=== PATIENT | male | born 1955 | race Caucasian/White ===

== ENCOUNTER 2022-01-19 09:10 | Emergency (ER) | payer OTHER, SELFPAY ==
[2022-01-19 09:29] VITALS: BP 150/89; PULSE 80; RESP 26; TEMP 36.6; O2SAT 95; BMI 36.2
--- NOTE | 2022-01-19 10:01 | CRLHL7_ITS ---
For Patients: As a result of the Century Cures Act, medical imaging exams and procedure reports are released immediately into your electronic medical record. You may view this report before your referring provider. If you have questions, please contact your health care provider. INDICATION: Cough and dyspnea COMPARISON: 04/28/2021 TECHNIQUE: Two views of the chest were acquired FINDINGS: TUBES AND LINES: None. HEART AND MEDIASTINUM: Heart size top normal. Sternotomy. Left atrial appendage occlusion device noted. LUNGS AND PLEURAL SPACES: Lung findings likely related to edema/CHF though a diffuse inflammatory process is possible. No pleural effusion or pneumothorax OSSEOUS STRUCTURES: Age-appropriate appearance. No acute focal finding. IMPRESSION: 1. Lung findings likely related to edema/CHF. A diffuse inflammatory process is also possible. Normal pleural spaces. 2. Heart size top normal. Sternotomy. Left atrial appendage occlusion device. Dictated by Shahid Duke MD @ 01/19/2022 10:50:34 AM (Electronically Signed)
--- NOTE | 2022-01-19 10:01 | ED.GENADULT ---
HPI - General Adult General Chief complaint: Shortness of Breath/Dyspnea Stated complaint: Short of breath Time Seen by Provider: 01/19/22 09:14 History of Present Illness HPI narrative: This 66-year-old male comes in reporting cough and some shortness of breath. These symptoms started yesterday. He states that he slept in a recliner last night. He does not report any fever. He does have some nasal congestion. He arrives with normal vital signs but does have some increased respirations. His oximetry is at 95% on room air. He has a history of fluid around his heart and had his pericardium removed about 6 months ago. He does not report any chest pain. He does not have any pedal edema. Related Data Previous Rx's Medication Instructions Recorded acetaminophen 300 mg-codeine 30 mg 1 tab PO Q6H PRN pain #20 tabs 01/19/22 tablet Allergies Allergy/AdvReac Type Severity Reaction Status Date / Time Penicillins Allergy Verified 01/19/22 09:28 mtc oil Allergy Uncoded 01/19/22 09:28 Review of Systems Status of ROS: Reports: 10 or more systems reviewed and unremarkable except as noted in History and below Narrative: Constitutional: No fevers, no weight gain or loss. Eyes: No discharge. No vision changes. HENT: No congestion, no sore throat, no ear pain. Cardiovascular: No chest pain, no palpitations. Respiratory: Cough with some shortness of breath. Gastrointestinal: No abdominal pain, no vomiting, no diarrhea. Genitourinary: No dysuria, no hematuria. Musculoskeletal: Normal range of motion. Skin: No rashes, no pruritis. Neurological: No dizziness, weakness, sensory change, speech change. Endo/Heme/Allergies: No bruising or bleeding. No polydipsia. Pysch: no suicidality, no anxiety, no insomnia. All other systems reviewed and are negative. PFSH PFSH Social History Smoking Status: Never smoker Do you use any of these nicotine containing products: None Second hand tobacco smoke exposure: No How often do you have a drink containing alcohol: 2-3 times a week How many standard drinks containing alcohol do you have on a typical day: 3 or 4 How often do you have six or more drinks on one occasion: Monthly AUDIT-C Alcohol total score: 6 Non-prescribed substance use: denies use service: No Exam Narrative: Exam Narrative: Constitutional: Well-developed, well-nourished, no acute distress. HEENT: Normocephalic, atraumatic. Neck: Normal range of motion. Nontender. Supple. Heart: Regular. No murmurs. Normal rate. Intact distal pulses. Lungs: Clear to auscultation. No chest discomfort. No rhonchi, or rales. A slight wheezes heard in the left anterior lung. Abdomen: Normal bowel sounds. Nontender. No rebound tenderness. Genitalia: Deferred. Back: No midline tenderness. Normal range of motion. Extremities: Normal range of motion. No injury. Skin: Intact. No rash. Warm. No erythema or pallor. Neurologic: No altered sensation. No weakness. Alert and oriented. Psychiatric: No suicidality. No anxiety or depression. No insomnia. Nursing notes and vitals signs are reviewed. Const: Vital Signs, click to edit/add: Vital Signs - 24 hr 01/19/22 09:29 01/19/22 10:30 01/19/22 11:00 Temperature 97.8 F Pulse Rate [Apical ] 80 87 84 Respiratory Rate 26 H 16 16 Blood Pressure [Ri ght Upper Arm] 150/89 H 151/94 H 162/92 H Pulse Oximetry 95 93 95 Oxygen Delivery Me thod Room Air 01/19/22 11:30 Temperature Pulse Rate [Apical ] 89 Respiratory Rate 16 Blood Pressure [Ri ght Upper Arm] 161/90 H Pulse Oximetry 94 Oxygen Delivery Me thod Course Vital Signs Vital signs: Initial Vital Signs Temperature 97.8 F 01/19/22 09:29 Temperature Source Temporal Artery Scan 01/19/22 09:29 Pulse Rate 80 01/19/22 09:29 Pulse Rhythm 01/19/22 09:29 Respiratory Rate 26 H 01/19/22 09:29 Blood Pressure 150/89 H 01/19/22 09:29 Blood Pressure Mean 109 01/19/22 09:29 Blood Pressure Position Supine 01/19/22 09:29 Pulse Oximetry 95 01/19/22 09:29 Oxygen Delivery Method 01/19/22 09:29 Vital Signs Temperature 97.8 F 01/19/22 09:29 Pulse Rate 80 01/19/22 09:29 Respiratory Rate 26 H 01/19/22 09:29 Blood Pressure 150/89 H 01/19/22 09:29 Pulse Oximetry 95 01/19/22 09:29 Oxygen Delivery Method 01/19/22 09:29 Temperature 97.8 F 01/19/22 09:29 Pulse Rate 89 01/19/22 11:30 Respiratory Rate 16 01/19/22 11:30 Blood Pressure 161/90 H 01/19/22 11:30 Pulse Oximetry 94 01/19/22 11:30 Oxygen Delivery Method 01/19/22 09:29 Medical Decision Making Lab Data Labs: Lab Results 01/19/22 01/19/22 01/19/22 Range/Units 09:55 10:13 10:13 WBC 7.39 (4.50-11.00) K/uL RBC 4.46 (4.30-5.90) m/uL Hgb 13.3 L (13.5-17.5) gm/dL Hct 39.2 (37.0-53.0) % MCV 88 (80-100) fL MCH 30 (26-34) pg MCHC 34 (32-36) gm/dL RDW Coeff of [place] 14.9 (11.5-15.5) % Plt Count 126 L (140-440) K/uL Neut % (Auto) 76.2 H (42.0-72.0) % Lymph % (Auto) 10.7 L (20-44) % [place] % (Auto) 11.1 H (0.0-11.0) % Eos % (Auto) 1.8 (0.0-7.0) % Baso % (Auto) 0.1 (0.0-3.0) % Neut # (Auto) 5.60 (1.7-7.0) K/uL Lymph # (Auto) 0.80 L (0.90-2.90) K/uL [place] # (Auto) 0.80 (0.00-0.90) K/UL Eos # (Auto) 0.13 (0.00-0.50) K/uL Baso # (Auto) 0.01 (0.00-0.30) K/uL Abs Immat Gran (auto) 0.01 (0.00-0.30) K/uL Sodium 134 L (135-149) mmol/L Potassium 4.4 (3.6-5.1) mmol/L Chloride 100 (96-114) mmol/L Carbon Dioxide 24 (20-32) mmol/L BUN 13 (7-30) mg/dL Creatinine 0.7 (0.5-1.5) mg/dL Estimated Creat Clear 89.19 Estimated GFR 103 ml/min Glucose 172 H (60-115) mg/dL Calcium 9.1 (8.4-10.6) mg/dL NT-Pro-B Natriuret Pep 149 H (0-125) PG/mL SARS-CoV-2 (PCR) Negative SARS-CoV-2 (Negative) Influenza Type A (PCR) Negative PCR FLU A (Negative) Influenza Type B (PCR) Negative PCR FLU B (Negative) RSV (PCR) Cancelled POC Troponin I (0.01-0.04) ng/ml 01/19/22 Range/Units 10:13 WBC (4.50-11.00) K/uL RBC (4.30-5.90) m/uL Hgb (13.5-17.5) gm/dL Hct (37.0-53.0) % MCV (80-100) fL MCH (26-34) pg MCHC (32-36) gm/dL RDW Coeff of [place] (11.5-15.5) % Plt Count (140-440) K/uL Neut % (Auto) (42.0-72.0) % Lymph % (Auto) (20-44) % [place] % (Auto) (0.0-11.0) % Eos % (Auto) (0.0-7.0) % Baso % (Auto) (0.0-3.0) % Neut # (Auto) (1.7-7.0) K/uL Lymph # (Auto) (0.90-2.90) K/uL [place] # (Auto) (0.00-0.90) K/UL Eos # (Auto) (0.00-0.50) K/uL Baso # (Auto) (0.00-0.30) K/uL Abs Immat Gran (auto) (0.00-0.30) K/uL Sodium (135-149) mmol/L Potassium (3.6-5.1) mmol/L Chloride (96-114) mmol/L Carbon Dioxide (20-32) mmol/L BUN (7-30) mg/dL Creatinine (0.5-1.5) mg/dL Estimated Creat Clear Estimated GFR ml/min Glucose (60-115) mg/dL Calcium (8.4-10.6) mg/dL NT-Pro-B Natriuret Pep (0-125) PG/mL SARS-CoV-2 (PCR) (Negative) Influenza Type A (PCR) (Negative) Influenza Type B (PCR) (Negative) RSV (PCR) POC Troponin I 0.00 L (0.01-0.04) ng/ml Imaging Data Chest x-ray: Radiologist's impression: 1. Lung findings likely related to edema/CHF. A diffuse inflammatory process is also possible. Normal pleural spaces. 2. Heart size top normal. Sternotomy. Left atrial appendage occlusion device. ECG Data Attestation: I personally reviewed and interpreted this ECG as follows: Interpretation: Normal sinus rhythm. Rate is 82 beats per minute. Left anterior fascicular block. There are no ST or T-wave abnormalities. Discharge Plan Discharge Clinical Impression: Acute upper respiratory infection Patient Disposition: Home, Self-Care Condition: Improved Additional Instructions: Take medication as needed and indicated. Follow up with MD or return if worsening. For further evaluation of the ventral hernia call for appointment at surgery clinic. Prescriptions: New acetaminophen-codeine 300-30 mg tablet 1 tab PO Q6H PRN (Reason: pain) Qty: 20 0RF Follow Up/Referrals: Loc Barrios MD [Primary Care Provider] - Stand Alone Forms: [employer] Info Instructions
[2022-01-19 10:23] LABS: Basophils Absolute Auto 0.01 K/uL (0.00-0.30); Basophils Percent Auto 0.1 % (0.0-3.0); Eosinophils Absolute Auto 0.13 K/uL (0.00-0.50); Eosinophils Percent Auto 1.8 % (0.0-7.0); Hematocrit 39.2 % (37.0-53.0); Hemoglobin* 13.3 gm/dL (13.5-17.5); Immature Granulocytes Abs Auto 0.01 K/uL (0.00-0.30); Lymphocytes Percent Auto 10.7 % (20-44); Mean Corpuscular HGB Conc 34 gm/dL (32-36); Mean Corpuscular Hemoglobin 30 pg (26-34); Mean Corpuscular Volume 88 fL (80-100); Monocytes Percent Auto 11.1 % (0.0-11.0); Neutrophils Percent Auto 76.2 % (42.0-72.0); Platelet Count* 126 K/uL (140-440); RDW Coefficient of Variation % 14.9 % (11.5-15.5); Red Blood Count 4.46 m/uL (4.30-5.90); Slide Review Reflex No; White Blood Count* 7.39 K/uL (4.50-11.00)
[2022-01-19 10:30] VITALS: BP 151/94; PULSE 87; RESP 16; O2SAT 93
[2022-01-19 10:31] LABS: Chloride* 100 mmol/L (96-114); Potassium* 4.4 mmol/L (3.6-5.1); Sodium* 134 mmol/L (135-149)
[2022-01-19 10:33] LABS: Creatinine* 0.7 mg/dL (0.5-1.5); Est. Creatinine Clearance* 89.19; Estimated Glomerular Filt Rate 103 ml/min
[2022-01-19 10:34] LABS: Blood Urea Nitrogen* 13 mg/dL (7-30); Calcium* 9.1 mg/dL (8.4-10.6); Carbon Dioxide* 24 mmol/L (20-32); Glucose* 172 mg/dL (60-115)
[2022-01-19 10:43] LABS: NT Pro B Type NatriureticPept* 149 PG/mL (0-125)
[2022-01-19 10:54] LABS: PCR FLU A Negative PCR FLU A (Negative); PCR FLU B Negative PCR FLU B (Negative)
[2022-01-19 11:00] VITALS: BP 162/92; PULSE 84; RESP 16; O2SAT 95
[2022-01-19 11:05] LABS: SARS PCR* Negative SARS-CoV-2 (Negative)
[2022-01-19 11:30] VITALS: BP 161/90; PULSE 89; RESP 16; O2SAT 94
== END 2022-01-19 11:52 | disposition home or self-care (01) ==
LOC: ED 10:05
PROVIDERS: Emergency Provider Emergency Medicine Emergency Medical Services; PCP Surgery
DX: J06.9 Acute upper respiratory infection, unspecified (principal)
CPT/HCPCS: 36415; 71046; 80048; 83880; 85025; 87502; 87631; 87634; 87635; 93005; 99284; 99285

== ENCOUNTER 2022-01-21 21:45 | Emergency (ER) | payer OTHER, SELFPAY ==
[2022-01-21 21:58] VITALS: BP 155/87; PULSE 101; RESP 24; TEMP 36.8; O2SAT 94; BMI 37.2
--- NOTE | 2022-01-21 22:13 | CRLHL7_ITS ---
For Patients: As a result of the Cures Act, medical imaging exams and procedure reports are released immediately into your electronic medical record. You may view this report before your referring provider. If you have questions, please contact your health care provider. INDICATION: [id number]. TECHNIQUE: Chest 2 views. COMPARISON: January 19, 2022. FINDINGS: Cardiovascular and mediastinum: Heart size and vasculature are normal in caliber and appearance. Left atrial appendage occlusion device. Sternotomy wires. Lungs and pleural spaces: Mild pulmonary edema. No focal consolidations. No sign of pleural effusion. No pneumothorax. Bones and soft tissues: No significant findings. IMPRESSION: No significant changes from the prior exam. Dictated by Miguelangel Vazquez MD @ 01/21/2022 10:48:17 PM (Electronically Signed)
--- NOTE | 2022-01-21 22:41 | ED.GENADULT ---
HPI - General Adult General Chief complaint: Shortness of Breath/Dyspnea Stated complaint: difficulty breathing Time Seen by Provider: 01/21/22 21:58 History of Present Illness HPI narrative: Pt is a 66 year old gentleman who was seen earlier this week for cough and sob. Work up including covid test, blood work, chest x ray unremarkable. Pt treated symptomatically. Pt not hypoxic or short of breath but does have a nonproductive cough and malaise. Pt case complicated by pericardectomy in July of this year for restrictive findings found during ablation of atrial fibrillation. Pt has no chest pain, nausea vomiting, fever or chills. No sick contacts. Related Data Previous Rx's Medication Instructions Recorded acetaminophen 300 mg-codeine 30 mg 1 tab PO Q6H PRN pain #20 tabs 01/19/22 tablet Allergies Allergy/AdvReac Type Severity Reaction Status Date / Time Penicillins Allergy Verified 01/19/22 09:28 mtc oil Allergy Uncoded 01/19/22 09:28 Review of Systems Status of ROS: Reports: 10 or more systems reviewed and unremarkable except as noted in History and below PFSH PFS Social History Smoking Status: Never smoker Do you use any of these nicotine containing products: None Second hand tobacco smoke exposure: No How often do you have a drink containing alcohol: 2-3 times a week How many standard drinks containing alcohol do you have on a typical day: 3 or 4 How often do you have six or more drinks on one occasion: Monthly AUDIT-C Alcohol total score: 6 Non-prescribed substance use: denies use service: No Exam Narrative: Exam Narrative: EXAM GENERAL: Patient appears comfortable and well. EYES: No scleral icterus. ENT: Tympanic membranes and oropharynx normal. THYROID: no thyroid nodules or thyromegaly. LYMPH: No supraclavicular or cervical lymphadenopathy. SKIN: Visible skin seen during exam normal or with benign process only. EXT: No dependent lower extremity pedal edema. HEART: Regular rate and rhythm with no murmurs, rubs, or gallops. LUNGS: Bilateral expiratory wheezes noted. ABD: Soft, non tender, non distended. PSYCH: Good eye contact, speech is not pressured. Const: Vital Signs, click to edit/add: Vital Signs - 24 hr 01/21/22 21:58 Temperature 98.2 F Pulse Rate [Left P ulse Oximeter] 101 H Respiratory Rate 24 Blood Pressure [Ri ght Upper Arm] 155/87 H Pulse Oximetry 94 Oxygen Delivery Me thod Room Air Course Course Hospital Course: Pt seen and examined. Vitals reviewed. Chest x ray 2 view ordered. Reevaluation(s) Reevaluation #1: Chest x ray upon my review unchanged from previous. Time: 22:45 Vital Signs Vital signs: Initial Vital Signs Temperature 98.2 F 01/21/22 21:58 Temperature Source Temporal Artery Scan 01/21/22 21:58 Pulse Rate 101 H 01/21/22 21:58 Pulse Rhythm 01/21/22 21:58 Respiratory Rate 24 01/21/22 21:58 Blood Pressure 155/87 H 01/21/22 21:58 Blood Pressure Mean 109 01/21/22 21:58 Blood Pressure Position Semi-Fowlers 01/21/22 21:58 Pulse Oximetry 94 01/21/22 21:58 Oxygen Delivery Method 01/21/22 21:58 Vital Signs Temperature 98.2 F 01/21/22 21:58 Pulse Rate 101 H 01/21/22 21:58 Respiratory Rate 24 01/21/22 21:58 Blood Pressure 155/87 H 01/21/22 21:58 Pulse Oximetry 94 01/21/22 21:58 Oxygen Delivery Method 01/21/22 21:58 Temperature 98.2 F 01/21/22 21:58 Pulse Rate 101 H 01/21/22 21:58 Respiratory Rate 24 01/21/22 21:58 Blood Pressure 155/87 H 01/21/22 21:58 Pulse Oximetry 94 01/21/22 21:58 Oxygen Delivery Method 01/21/22 21:58 Medical Decision Making [facility] Narrative Medical decision making narrative: Pt presents 2 days after full workup for nonproductive cough performed. Vitals normal. Expiratory wheezes noted on exam. Chest x ray reassuring. Pt with history of pericardectomy noted. Pt appears to have bronchitis and will be treated with Z pack plus albuterol with PCP follow up. Differential Diagnosis Differential Diagnosis: CHF, COVID, Bronchitis, Pneumonia, Pneumothorax, Viral Syndrome Medical Records Medical records reviewed: Yes I reviewed the patient's medical records Discharge Plan Discharge Clinical Impression: Bronchitis Patient Disposition: Home, Self-Care Condition: Stable Instructions: Acute Bronchitis (ED) Additional Instructions: Z pack as directed Albuterol as directed Activity Level: No Restrictions Discharge Diet: Regular Prescriptions: No Action acetaminophen-codeine 300-30 mg tablet 1 tab PO Q6H PRN (Reason: pain) Qty: 20 0RF Follow Up/Referrals: Loc Barrios MD [Primary Care Provider] - Stand Alone Forms: [employer] Info Instructions
--- OUTSIDE RECORDS SUMMARY | 2022-01-21 22:45 | XMS_ITS | Encounter Summary ---
:1955 Author Organization [facility] Address [address] [place] [address] Care Team Providers Name Role Phone Unavailable Primary Care Provider Unavailable Reason for Referral Therapies (Routine) - Closed Specialty Diagnoses / Procedures Referred By Contact Refer red To Contact Diagnoses Cervical radiculopathy Beau Ogden MD [address] [place] [address] AYAN Samuel 5543 1 Referral ID Status Reason Start Date Expiration Date Visits Requ ested Visits Authorized [id number] Closed 11/27/2018 01/26/2019 1 1 Scheduling Instructions Your provider has recommended an appoint ment with [facility]. You may call [phone] to schedule your appoi ntment. If you do not schedule an appointment within the next 1 to 3 business days, we will call you to help arrange your appointment. We suggest you call your [employer] insurance company about your coverage and benefits for this appointment. Reason for Visit Reason Comments SHOULDER PAIN left about 2 weeks Encounter Details Date Type Department Care Team Description 11/27/2018 Office Visit [facility] Orthopedic Beau Ogden Cervica l radiculopathy Urgent Care MD (Primary Dx) [address] [place] [address] [place] [phone] (Wo rk) Social History Tobacco Use Types Packs/Day Years Used Date Smoking Tobacco: Never Sex Assigned at Date Recorded Not on file documented as of this encounter Last Filed Vital Signs Vital Sign Reading Time Taken Comments Blood Pressure 140/90 11/27/2018 5:45 PM CDT Pulse - - Temperature 36.7 ??C (98.1 ??F) 11/27/2018 5:45 PM CDT Respiratory Rate - - Oxygen Saturation - - Inhaled Oxygen Concentration - - Weight 133.8 kg (295 lb) 11/27/2018 5:45 PM CDT Height 188 cm (6' 2) 11/27/2018 5:45 PM CDT Body Mass Index 37.88 11/27/2018 5:45 PM CDT documented in this encounter Patient Instructions Patient InstructionsNenita Rojas ATC - 11/27/2018 4:[address] Beau Ogden MD Sports & Orthopaedic Medicine [facility] Medication Requests: Prescriptions are not filled on Weekends or on Weekdays after 3:00PM For all medication refills: Request a refill using MyChart or contact your Pharmacy [facility] Nurse Line: Please contact [facility] Nurse line for all medical requests and questions at [phone] MRI Scheduling: To schedule an MRI at [facility] please call [phone] Paperwork Requests: Questions regarding FMLA or disability paperwork please call [phone] Workers??? Compensation: Please contact our department for any Work Comp concerns at Email: [email or web address] Left cervical radiculopathy Avoid activities that cause pain Physical therapy referral Follow up as needed The following medications were prescribed at your visit : Orders Placed This Encounter Medications ??? cyclobenzaprine (FLEXERIL) 10 MG tablet Sig: Take 1 Tablet by mouth three times a day as needed. Dispense: 20 Tablet Refill: 0 ??? gabapentin (NEURONTIN) 300 MG capsule Sig: Take 1 Capsule by mouth three times a day. Dispense: 270 Capsule Refill: 3 Medication Refill Requests: Prescription Refill Requests are not filled on Weekends or on Weekdays after 3:00PM For all medication refills: Request a refill using MyChart or contact your Pharmacy documented in this encounter Progress Notes Beau Ogden MD - 11/27/2018 12:00 PM CDT NAME: BRANDON SANTOS MR#: [id number] CSN: [id number] AUTHENTICATING CLINICIAN: Beau Ogden MD CONFIRM #: [id number] LOC: 711 CLINIC PROGRESS NOTE DATE OF VISIT: 11/27/2018 : 1955 Brandon Santos here for left shoulder pain that began 2 weeks ago without injury. He has pain over thelateral and deep aspect of the shoulder as well as into the scapula as well as down to the triceps and elbow. He had a stiff neck initially. Pain is worse in the evening and lying down, but does not describe definite symptoms during the day when he is active with his arms. Pain is 9/10. He has no history of similar pain at the neck or the shoulder in the past. REVIEW OF SYSTEMS: No fever, rash, numbness, and tingling. No stomach or joint problems. Positive for diabetes. PAST MEDICAL HISTORY: None. PAST SURGICAL HISTORY: Hernia and sleep apnea. FAMILY HISTORY: Diabetes. 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 ALLERGIES: Per Epic. MEDICATIONS: Per Epic. OBJECTIVE: VITAL SIGNS: Height 62 inches, weight 295 pounds. Temperature 98.1, blood pressure 140/90. GENERAL: Well-appearing male in no acute distress. CERVICAL: Has decreased flexion and extension with pain. Rotation appears full. Upper extremity strength is 5/5 bilaterally. No scapular winging. Left shoulder a bduction, internal, and external rotation is full. Nontender to palpation. Strength in all planes is5/5. Negative Sawyer, Neer's, and Princeton's. ASSESSMENT: Left cervical radiculopathy without focal neurologic deficit. PLAN: We discussed prednisone, and we will hold given his diabetes. We will start with gabapentin, cyclobenzaprine, and acute physical therapy. If not improving over time, we will plan for a cervical MRI. Follow up as needed. SAB:MEDQ C: R:11/27/18 23:06 CONFIRM#:[id number] documented in this encounter Plan of Treatment Scheduled Referrals Name Type Priority Associated Diagnoses Order [facility] Physical Therapy Referral Routine Cervical radiculopathy O rdered: 11/27/2018 documented as of this encounter Visit Diagnoses Diagnosis Cervical radiculopathy - Primary Brachial neuritis or radiculitis nos documented in this encounter
--- OUTSIDE RECORDS SUMMARY | 2022-01-21 22:45 | XMS_ITS | Clinical Summary ---
:1955 Author Organization [facility] Address [address] [place] [address] Care Team Providers Name Role Phone Loc Barrios MD Primary Care Provider Source Comments You are receiving this document as you are listed as the primary care provider,follow-up provider, or the patient has been referred to you for consultation.This is in compliance with the Medicare and Medicaid EHR Incentive Program,which states Providers who transition their patient to another setting of careor provider of care or refers their patient to another provider of care shouldprovide summarycare record for each transition of care or referral. [employer] Allergies Active Allergy Reactions Severity Noted Date Comments Penicillins Other, see comments 01/20/2012 Medications Medication Sig Dispensed Refills Start Date End Date Status Canagliflozin 300 MG TK 1 T PO QD 7 11/10/2015 Active TABSIndications: JANICE GILLESPIE Nov 30, 2015 10:20 AM Received from: External Pharmacy metFORMIN (GLUCOPHAGE) TK 1 T PO BID 1 10/08/2015 Active 1000 MG WITH MEALS tabletIndications: JANICE GILLESPIE Nov 30, 2015 10:20 AM Received from: External Pharmacy rosuvastatin (CRESTOR) TK 1 T PO HS 3 10/12/2018 Active 10 MG tablet cyclobenzaprine Take 1 Tablet 20 Tablet 0 11/27/2018 Active (FLEXERIL) 10 MG tablet by mouth three times a day as needed. gabapentin (NEURONTIN) Take 1 Capsule 270 Capsule 3 11/27/2018 Active 300 MG capsule by mouth three times a day. Active Problems Problem Noted Date Primary osteoarthritis of left knee 11/30/2015 Olecranon bursitis 01/20/2012 Elbow pain 01/20/2012 Social History Tobacco Use Types Packs/Day Years Used Date Smoking Tobacco: Never Sex Assigned at Date Recorded Not on file Last Filed Vital Signs Vital Sign Reading Time Taken Comments Blood Pressure 140/90 11/27/2018 5:45 PM CDT Pulse 68 01/20/2012 10:53 AM CDT Temperature 36.7 ??C (98.1 ??F) 11/27/2018 5:45 PM CDT Respiratory Rate - - Oxygen Saturation - - Inhaled Oxygen Concentration - - Weight 133.8 kg (295 lb) 11/27/2018 5:45 PM CDT Height 188 cm (6' 2) 11/27/2018 5:45 PM CDT Body Mass Index 37.88 11/27/2018 5:45 PM CDT Plan of Treatment Health Maintenance Due Date Last Done Comments Colon Cancer Screening Plan 1955 Due Hep C Screening (Preventive 1955 Services) PSA Screening Discussion 1955 COVID-19 Vaccine (#1) 1955 HIV Screening (Preventive 1973 Services) Adult Preventive Visit 07/01/1975 Cholesterol 1992 Zoster/Shingles (2 of 2) 03/30/2020 02/03/2020 Influenza (#1) 2021 02/03/2020, 03/14/2019, 03/22/2018, Additional history exists DTaP/Tdap/Td (3 - Tdap) 02/02/2030 02/03/2020, 10/01/2009, 04/03/1999 HepA Aged Out No longer eligib le based on patient 's age to complete this topic HepB Aged Out No longer eligib le based on patient 's age to complete this topic Hib Aged Out No longer eligib le based on patient 's age to complete this topic IPV (Polio) Aged Out No longer eligib le based on patient 's age to complete this topic MCV4 Aged Out No longer eligib le based on patient 's age to complete this topic Pneumococcal Aged Out No longer eligib le based on patient 's age to complete this topic Insurance Payer Benefit Plan / Subscriber ID Effective Phone Address T ype Group Dates [facility] [id number] 2018-Pre [phone] [place] [address] [facility] [employer] [id number] 2009-Pr [phone] [employer]ALTHCARE esent [address] [address] [place] [address] Care Teams Emergency Registrar Relationship Specialty Start Date End Date Loc Barrios MD PCP - General Family Practice 12/06/18 [address] [place] [address]
--- OUTSIDE RECORDS SUMMARY | 2022-01-21 22:45 | XMS_ITS | Encounter Summary ---
:1955 Author Organization [facility] Address [address], [place] [address] Care Team Providers Name Role Phone Unavailable Primary Care Provider Unavailable Reason for Visit Reason Comments INJURY, ELBOW Encounter Details Date Type Department Care Team Description 01/20/2012 Office Visit [facility] Miguelangel Baker pain (Primary Dx); Jennie Torre MD Olecranon bursitis [address] [place], [place] [phone] Social History Tobacco Use Types Packs/Day Years Used Date Smoking Tobacco: Never Assessed Sex Assigned at Date Recorded Not on file documented as of this encounter Last Filed Vital Signs Vital Sign Reading Time Taken Comments Blood Pressure 133/83 01/20/2012 10:53 AM CDT Pulse 68 01/20/2012 10:53 AM CDT Temperature 36.4 ??C (97.5 ??F) 01/20/2012 10:53 AM CDT Respiratory Rate - - Oxygen Saturation - - Inhaled Oxygen Concentration - - Weight 131.5 kg (290 lb) 01/20/2012 10:53 AM CDT Height 190.5 cm (6' 3) 01/20/2012 10:53 AM CDT Body Mass Index 36.25 01/20/2012 10:53 AM CDT documented in this encounter Patient Instructions Patient InstructionsIsabel Meza MA - 01/20/2012 11:[address] Miguelangel Baker MD Sports & Orthopaedic Medicine Research Nurse: Claudia Royal Please call Claudia for all administrative questions at [phone] Please contact Nurse Triage for all medical questions at [phone] Please contact your Pharmacy for all medication refill requests documented in this encounter Progress Notes Miguelangel Baker MD - 01/21/2012 7:38 AM CDT Progress Notes signed by iMguelangel Baker MD at 01/24/12 110 Author: Miguelangel Baker MD Service: (none) Author Type: Physician Filed: 01/24/12 110 Note Time: 01/21/12737 Status: Signed Mental Retardation Aide: Miguelangel Baker MD (Physician) NAME: BRANDON SANTOS VISIT: [id number] DICTATING CLINICIAN: MIGUELANGEL BAKER MD JOB: [id number] [facility] JOB: [id number] LOC: 3711 CLINIC PROGRESS NOTE DATE OF VISIT: 01/20/2012 : 1955 Mr. Santos comes in today with a history of a tenderness in his left elbow. He notes if he rests his elbow on any firm surface he gets sharp shooting pains in the epicondylar area and region of the olecranon bursa. It seems to come and go. If he puts on a long-sleeved shirt and it puts pressure on that area, it becomes much more problematic for him. He is going up into [place] [employer] for a week, and he is going to be doing a lot of activities involving elbow motion and pressure and the like and is concerned about persistent aggravation of that structure while in that fairly isolated environment. PHYSICAL EXAMINATION: He does have some crepitus in his olecranon bursa and is sensitive in that area with palpation. Motion of the elbow is normal. Pronation and supination asymptomatic. X-RAYS: X-rays were ordered and independently reviewed by me. X-ray was taken of the elbow and it shows a small protuberance at the tip of the elbow, otherwise the x-rays reveal no other abnormalities whatsoever. HEALTH PROFILE: Mr. Santos rates his elbow pain anywhere from a 0-7/10 (0 being normal and 10 the most intense pain one can imagine). He stands 6 feet 3 inches and weighs 290 pounds. Blood pressure 133/83, pulse 68. He states he is concerned about the elbow because he gets a tearing sensation in the elbow when he uses it under pressure. MEDICATIONS: Metformin and simvastatin for medical problems and elevated cholesterol. ADR/ALLERGIES: PENICILLIN. MEDICAL HISTORY: Mr. Santos does not have a history of any recent fever or rash. He does have some numbness and tingling in his elbow on occasion. He does have a history of diabetes for which he takes the metformin. He has no history of any stomach problems or joint problems except for his elbow issue. He does not smoke. 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 He does not have any other significant medical conditions except those mentioned. He has no history of any previous surgeries. He has no history of any significant family history that he comments on today. 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 He is right-handed. His hobbies are golf, gardening, fishing and hunting. PROCEDURE: Because of the persistent concerns about the irritation in the elbow and the evidence of crepitus on examination of the olecranon bursa, I felt that he had a potential for a problem with irritation in that region, and as a result, under sterile conditions, using a 25-gauge needle, we injected 1 mL of Depo-Medrol and 1 mL of 1% Lidocaine into the bursal area, which he tolerated very well. This was done under sterile conditions with #8 sterile gloves, prepping the area with Betadine and then cleaning the wound off with an alcohol prep after the injection and placing a band-aid on the puncture site. He tolerated this very well. We will discharge him and see him if he has any further problems. IM: 01/22/2012 08:05:25 am MT: 10 documented in this encounter Plan of Treatment Not on filedocumented as of this encounter Procedures Procedure Name Priority Date/Time Associated Diagnosis Comme nts XR ELBOW LT 2 VIEWS Routine 01/20/2012 11:09 AM Elbow pain R esults for this CDT procedure are i n the results section. documented in this encounter Results XR Elbow Lt 2 Views (01/20/2012 11:09 AM CDT) Anatomical Region Laterality Modality Upper Extremity, Elbow, Arm Other Specimen (Source) Anatomical Location Collection Method / Collectio n Time Received Time / Laterality Volume Narrative 02/20/2012 9:05 AM QUALITY ASSISTANT X-ray was taken of the elbow and it show s a small protuberance at the tip of the elbow, otherwise the x-rays r eveal no other abnormalities whatsoever. ?? KAROLINAB/suek Procedure Note Miguelangel Baker MD - 09/19/2015F ormatting of this note might be different from the original. X-ray was taken of the elbow and it show s a small protuberance at the tip of the elbow, otherwise the x-rays r eveal no other abnormalities whatsoever. KAROLINAB/jlk Miguelangel Baker MD RAD GD documented in this encounter Visit Diagnoses Diagnosis Elbow pain - Primary Pain in joint, upper arm Olecranon bursitis documented in this encounter
--- OUTSIDE RECORDS SUMMARY | 2022-01-21 22:45 | XMS_ITS | Encounter Summary ---
:1955 Author Organization [facility] Address [address] [place] [address] Care Team Providers Name Role Phone Loc Barrios MD Primary Care Provider Reason for Visit Reason Comments Shoulder Problem Encounter Details Date Type Department Care Team Description 12/21/2018 Office Visit [facility] PT and Ed Shiv Remy, Cervical radiculopathy (Primary Dx); Center, Physical PT Neck pain on left side Therapy [address] [place] [address] [phone] Social History Tobacco Use Types Packs/Day Years Used Date Smoking Tobacco: Never Sex Assigned at Date Recorded Not on file documented as of this encounter Progress Notes Shiv Remy, PT - 12/21/2018 8:30 AM CDT [facility] [place] [facility] Daily Note Visit Number: [id number] Insurance: [facility] Initial Certification Period: 11/27/2018 - 02/25/19 Referring Provider: Beau Ogden MD Diagnosis: Left Cervical Radic Orders: Evaluate & treat Precautions/Contraindications: None Date of Onset: Mid November 2018 Standardized Functional Score: Neck Disability Index: 16/50 = 32% 11/27/2018 ?? HISTORY: Patient presents to [facility] Acute Injury Clinic Physical Therapy with complaint of left shoulder and left sided neck pain. Pt reports pain starting about 2 weeks ago. Unsure of what caused the symptoms to start. Has been doing home projects (1000 foot addition and new deck). Method of Injury: Insidious Aggravating factors/ Functional Limitations: Worse in AM, painful to lay on left shoulder, shoulder retraction causes arm symptoms Alleviating factors: Better later in the day Occupation: [employer] - some travel, mostly desk work Prior level of function: Active with home chores Patient's Physical Therapy Goals: decrease pain ?? IMAGING STUDIES: MRI ordered SUBJECTIVE: Does not notice his pain during the day. He has nearly full ROM without any pain noted. He notes some pulling in his nerve with certain movements of his arm. Gets some more tingling in forearm and handwhich is new - but not having pain associated with it. OBJECTIVE: (-) neural tension test 12/21/2018 Full cervical rotation bilaterally TREATMENT TODAY: Therapeutic Exercise (CPT 79187) x 10 minutes: - ER Bilat - Extension Bilat - Scaption Performed to improve blood flow to UE/nerve Manual therapy, 1 or more regions (CPT 22004) x 15 minutes: - gentle manual distraction - cervical side glides L to R, R to L Progressively worked to less degrees of cervical flexion Timed Treatment Minutes: 25 minutes Total Treatment Time: 25 minutes Charges: 1 MT, 1TE ASSESSMENT: Doing much better - full cervical rotation. Improved function of arm. Still getting some mild pain but increased tingling with supine laying when going to bed. Has been sleeping in a recliner to mitigate this. Feels that PT is improving. Has been taking Gabapentin, but thinks he is getting some side ef fects from this and stopped 12/20/18. PLAN: Continue 1x/week or close to based on his travel. Continue with return to activities and manual therapy. EXPECTED FUNCTIONAL OUTCOMES/GOALS: HEP/Independent Management: Demonstrate independence with HEP and self- management following each treatment session ADL's: Resume previous sleep pattern without awakening due to symptoms in 4 weeks. Perform home management tasks with ease in 4 weeks. 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 Therapist: Stewart Remy PT, DPT, SCS ([place] License #[id number]) 12/21/2018 documented in this encounter Plan of Treatment Not on filedocumented as of this encounter Visit Diagnoses Diagnosis Cervical radiculopathy - Primary Brachial neuritis or radiculitis nos Neck pain on left side Cervicalgia documented in this encounter Care Teams Acute Coordinator Relationship Specialty Start Date End Date Loc Barrios MD PCP - General Family Practice 12/06/18 [address] [place] [address] documented as of this encounter
--- OUTSIDE RECORDS SUMMARY | 2022-01-21 22:45 | XMS_ITS | Encounter Summary ---
:1955 Author Organization [facility] Address [address], [place] [address] Care Team Providers Name Role Phone Unavailable Primary Care Provider Unavailable Reason for Visit Reason Comments Elbow Pain Knee Pain or Injury Encounter Details Date Type Department Care Team Description 11/30/2015 Office Visit [facility] Davey Duque, Chronic pain of right knee (Primary Dx); Urgent Care MD Primary osteoarthritis of left knee [address] [place] [address] [phone] Social History Tobacco Use Types Packs/Day Years Used Date Smoking Tobacco: Never Assessed Sex Assigned at Date Recorded Not on file documented as of this encounter Last Filed Vital Signs Vital Sign Reading Time Taken Comments Blood Pressure - - Pulse - - Temperature 36.6 ??C (97.9 ??F) 11/30/2015 10:21 AM CDT Respiratory Rate - - Oxygen Saturation - - Inhaled Oxygen Concentration - - Weight 131.5 kg (290 lb) 11/30/2015 10:21 AM CDT Height 190.5 cm (6' 3) 11/30/2015 10:21 AM CDT Body Mass Index 36.25 11/30/2015 10:21 AM CDT documented in this encounter Patient Instructions Patient InstructionsDeidre Smith MA - 11/30/2015 11:[address] Davey Kulkarni MD General Orthopaedics Protein Purification Scientist: Vida Oates Please contact Vida for all administrative questions at [phone] Please contact the nurse line for all medical related questions at [phone] Medication Requests: Prescriptions are not filled on Weekends or on Weekdays after 3:00PM For all medication refills: Request a refill using [facility] or contact your Pharmacy MRI Scheduling: To schedule an MRI at [facility] please call [phone] right knee patella femoral pain follow up as needed The right knee was injected with Kenalog-40 and marcaine. Avoid Strenuous Activity for the remainder of the day and avoid activities that cause pain for one to two weeks following the injection. Signs and Symptoms to watch for: If you have any redness, warmth or increasing pain at the site of the injection or develop a fever, please call [phone] documented in this encounter Progress Notes Davey Kulkarni MD - 12/01/2015 7:31 AM CDT Progress Notes signed by Davey Kulkarni MD at 12/29/15 1430 Author: Davey Kulkarni MD Service: (none) Author Type: Physician Filed: 12/29/15 1430 Note Time: 12/04/15713 Status: Signed Regulatory Coordinator: Davey Kulkarni MD (Physician) NAME: BRANDON SANTOS MR#: [id number] CSN: [id number] AUTHENTICATING CLINICIAN: Davey Kulkarni MD CONFIRM #: [id number] LOC: 711 CLINIC PROGRESS NOTE DATE OF VISIT: 11/30/2015 : 1955 This 60-year-old man has 2 problems. The first is the right knee. 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 There was not anyswelling. Stairs were difficult. Squatting was difficult. He had difficulty getting up from a chair.He sleeps all right. The second problem is his left elbow. He had infected olecranon bursitis. He had a small cut a few days before it happened. He went to the emergency room. They placed him on antibiotics, clindamycin and it is getting better. No longer hurts, the redness has gone down. There is slight swelling over theolecranon bursa. PAST SURGICAL HISTORY: Hernia. ILLNESS: Depression, diabetes Type 2. ALLERGIES: PENICILLIN. REVIEW OF SYSTEMS: Negative. He does not have any chills, fever or sickness. PHYSICAL EXAM: Height 6 feet 3 inches. Weight 290 pounds. No distress. The right knee has no effusion and no palpable tenderness. The patellofemoral joint is tender to compression and duplicates symptoms. The ligaments are stable and eZus's signs are normal. The left elbow shows full range of motion. There is no surrounding redness, heat or pain. There is slight fluctuance over the olecranon bursa. There are no axillary nodes. IMAGING: X-rays were independently reviewed. Right knee. Findings: Degenerative joint disease with narrowing of the medial joint compartment and patellofemoral degenerative signs. After a discussion, sterile prep and technique, the right knee atraumatically was injected through the anterolateral portal with Kenalog 40 mg, Marcaine 3 mL. He received nice relief of his symptoms. He will return in one week for followup of his olecranon bursitis. GMA: C: R:12/03/15 16:10 CONFIRM#:[id number] documented in this encounter Plan of Treatment Not on filedocumented as of this encounter Visit Diagnoses Diagnosis Chronic pain of right knee - Primary Primary osteoarthritis of left knee Primary localized osteoarthrosis, lower leg documented in this encounter
--- OUTSIDE RECORDS SUMMARY | 2022-01-21 22:45 | XMS_ITS | Encounter Summary ---
:1955 Author Organization [facility] Address [address] [place] [address] Care Team Providers Name Role Phone Loc Barrios MD Primary Care Provider Reason for Visit Reason Comments Spine Cervical Encounter Details Date Type Department Care Team Description 12/06/2018 Office Visit [facility] and Ed Sloan Holland Cervical radiculopathy Center, Physical C, PT (Primary Dx) Therapy [address] [facility] [address] [place], [place] [address] [address] [place], [place] [phone] (Wo rk) [phone] Social History Tobacco Use Types Packs/Day Years Used Date Smoking Tobacco: Never Sex Assigned at Date Recorded Not on file documented as of this encounter Progress Notes Sloan Holland PT - 12/06/2018 4:30 PM CDT [facility] Progress Note SUBJECTIVE EXAM: A little better, a little easier to sleep. Did overhead work yesterday, really paid for it with increased pain later that night. Is noting latent pain with activity. Worreid that this will be chronic Pain: CURRENT: 7 OBJECTIVE EXAM: Observation/Posture/Alignment: Normal resting postures. Shifts frequently to find a comfortable position Palpation: No significant tenderness in upper trap region Cervical ROM: ?? Cervical flexion: reduced 90% painful end range with peripheralization ?? Cervical extension: reduced 90%, painful end range with peripheralization ?? Cervical rotation: 50 left, 70 right (degrees) ?? Cervical lateral flexion: Right Relief in symptom Left: 90% reduced painful end range with peripheralization Special Tests (+ is a positive finding, - is a negative finding): ?? Spurling: (+) for increased symptoms ?? Distraction: (-) TREATMENT: Manual Therapy - to decrease pain and increase range of motion Supine in full flexion, grade 1-2 rotation mobilization mid cervical upglides Supine in full flexion, grade 1-2 distraction - sustained Seated and supine thoracic thrust and non thrust mobilization Therapeutic Exercise - to increase strength, control, and range of motion Cervical rotation [address] Seated shoulder bilateral ER Education on self management - not engaging in activities that provoke flare/latent pain for 1-2 weeks General reduction in overhead and arm work Daily walk x 10-15 minutes - pump blood and oxygen To nerve ASSESSMENT/PLAN: Notes some improvement. Still highly irritable nerve root. Continue with gentle hands on mobilization cervical and thoracic region, gradual introduction of traction. GOALS: See initial CHARGES: Manual Therapy: 15 minutes Therapeutic exercise: 15 minutes Timed Code Treatment Minutes: 30 Total Treatment Minutes: 30 Therapist: Sloan Holland PT, DPT documented in this encounter Plan of Treatment Not on filedocumented as of this encounter Visit Diagnoses Diagnosis Cervical radiculopathy - Primary Brachial neuritis or radiculitis nos documented in this encounter Care Teams Orthodontic Lab Technician Relationship Specialty Start Date End Date Loc Barrios MD PCP - General Family Practice 12/06/18 [address] [place] [address] documented as of this encounter
--- OUTSIDE RECORDS SUMMARY | 2022-01-21 22:45 | XMS_ITS | Encounter Summary ---
:1955 Author Organization [employer] Address [address] [place] [address] Care Team Providers Name Role Phone Unavailable Primary Care Provider Unavailable Reason for Visit Reason Comments Spine Cervical Therapies (Routine) - Closed Specialty Diagnoses / Procedures Referred By Contact Refer red To Contact Diagnoses Cervical radiculopathy Beau Ogden MD [address] [facility] [place] [address] Referral ID Status Reason Start Date Expiration Date Visits Requ ested Visits Authorized [id number] Closed 11/27/2018 01/26/2019 1 1 Encounter Details Date Type Department Care Team Description 11/27/2018 Office Visit [facility] Shiv Remy, Neck pain on left side (Primary Dx); Therapy PT Cervical radiculopathy [address] [facility] [place] [address] [place], [place] [address] [address] [place], [place] [phone] Social History Tobacco Use Types Packs/Day Years Used Date Smoking Tobacco: Never Sex Assigned at Date Recorded Not on file documented as of this encounter Progress Notes Shiv Remy, PT - 11/27/2018 7:30 PM CDT Physical Therapy Cervical Evaluation/Plan of Care Acute Injury Clinic Visit Number: 1 Not listed in EPIC Initial Certification Period: 11/27/2018 - 02/25/19 Referring Provider: Beau Ogden MD Diagnosis: Left Cervical Radic Orders: Evaluate & treat Precautions/Contraindications: None Date of Onset: Mid November 2018 Standardized Functional Score: Neck Disability Index: 16/50 = 32% 11/27/2018 HISTORY: [facility] [...] factors: Better later in the day 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 No past medical history on file. No past surgical history on file. Outpatient Medications Prior to Visit Medication Sig Dispense Refill ??? Canagliflozin 300 MG TABS TK 1 T PO QD 7 ??? cyclobenzaprine (FLEXERIL) 10 MG tablet Take 1 Tablet by mouth three times a day as needed. 20 Tablet 0 ??? gabapentin (NEURONTIN) 300 MG capsule Take 1 Capsule by mouth three times a day. 270 Capsule 3 ??? metFORMIN (GLUCOPHAGE) 1000 MG tablet TK 1 T PO BID WITH MEALS 1 ??? rosuvastatin (CRESTOR) 10 MG tablet TK 1 T PO HS 3 No facility-administered medications prior to visit. OBJECTIVE: General: Mood, orientation, behavior were appropriate. Patient was alert and oriented. Observation/Posture/Alignment: Normal resting postures. Shifts frequently to find a comfortable position Palpation: No significant tenderness in upper trap region Cervical ROM: ?? Cervical flexion: painful end range with peripheralization ?? Cervical extension: painful end range with peripheralization ?? Cervical rotation: WNL each direction ?? Cervical lateral flexion: Right Relief in symptom Left: painful end range with peripheralization SHOULDER SCREEN: ?? Scaption: WNL Neurological Screen: Strength/Myotomes: C5-T1 are strong bilaterally. Symptoms increased with muscle testing Sensation/Dermatomes: paresthesia in C6 Upper Limb Tension Tests: ?? Medial Nerve: (-) Special Tests (+ is a positive finding, - is a negative finding): ?? Spurling: (+) for increased symptoms ?? Distraction: (-) ?? Compression: (-) TREATMENT TODAY: Physical Therapy Evaluation (CPT 67798): An evaluation was performed. The patient was determined to have moderate complexity based on history, examination, clinical presentation of the patient and the PT???s clinical decision making. The patient was educated on the condition, planned therapy intervention and the expectations from treatment. Goals were a collaborative effort of the therapist and patient. Therapeutic Exercise (CPT 76910) x 15 minutes: ?? Cervical Rotation per tolerance ?? Self soft tissue mobilization to left upper trap/scalene ?? Right cervical sidebending for foramenal opening on contralateral side to alleviate symptoms Timed Code Minutes: 15 Total Time: 30 Charges: 1 eval mod, 1 TE Plan for next treatment session: Consider traction attempt, gentle manual therapy to open right side Education/Handouts: Diagnosis education Response to treatment: Good understanding of HEP ASSESSMENT: Therapist Impression: Brandon is a pleasant 63 y.o. male who presents with left sided neck pain. Upon subjective and objective findings, the patient's signs and symptoms are in accordance with the diagnosis of left cervical radic likely at c6. The patient presents with the following clinical findings limited and painful neck positons. These deficits make it difficult for the patient to perform normalwork related tasks and ADLs. Physical therapy is medically necessary to address the above listed deficits to return the patient to prior level of function. Practice Pattern: 4C - Impaired mm performance 4D - Connective tissue dysfunction 4E - Local inflammation Barriers to Learning: none Rehab Prognosis: Good PLAN: Planned Intervention/Education: Education, Therapeutic Exercise, Manual Therapy, Neuromuscular Re-education, Self Care/Home Management, Therapeutic Activities, Ice, Mechanical Traction, taping, modalities as needed PT Frequency/Duration: 1 x/week for 12 weeks for a total of 12 visits Discharge Plan: Goal achievement, goal achievement with home exercise program or if progress plateaus. Informed Consent: Risks, benefits and alternatives to treatment have been explained. Patient and/or family in agreement with care plan. EXPECTED FUNCTIONAL OUTCOMES/GOALS: HEP/Independent Management: Demonstrate independence with HEP and self- management following each treatment session ADL's: Resume previous sleep pattern without awakening due to symptoms in 4 weeks. Perform home management tasks with ease in 4 weeks. 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 Evaluation and Plan of Care completed by: Stewart Remy PT, DPT, SCS ([place] License #[id number]) 11/27/2018 Physician electronic signature indicates review and certification of therapy plan of care. documented in this encounter Plan of Treatment Scheduled Referrals Name Type Priority Associated Diagnoses Order [facility] Physical Therapy Referral Routine Cervical radiculopathy O rdered: 11/27/2018 documented as of this encounter Visit Diagnoses Diagnosis Neck pain on left side - Primary Cervicalgia Cervical radiculopathy Brachial neuritis or radiculitis nos documented in this encounter
--- OUTSIDE RECORDS SUMMARY | 2022-01-21 22:45 | XMS_ITS | Encounter Summary ---
:1955 Author Organization [facility] Address [address] [place] [address] Care Team Providers Name Role Phone Unavailable Primary Care Provider Unavailable Encounter Details Date Type Department Care Team Description 11/30/2015 Imaging [facility] Radiology Chronic pain of right knee [address] [place], [place] [address] Social History Tobacco Use Types Packs/Day Years Used Date Smoking Tobacco: Never Assessed Sex Assigned at Date Recorded Not on file documented as of this encounter Plan of Treatment Not on filedocumented as of this encounter Procedures Procedure Name Priority Date/Time Associated Diagnosis Comme nts XR KNEE RT 3 VIEWS Routine 11/30/2015 11:19 AM Chronic pain of Results for this CDT right knee procedure are i n the results section. documented in this encounter Results XR Knee Rt 3 Views (11/30/2015 11:19 AM CDT) Anatomical Region Laterality Modality Lower Extremity, Knee Other Specimen (Source) Anatomical Location Collection Method / Collectio n Time Received Time / Laterality Volume Narrative 12/18/2015 11:25 AM CDT Findings: Degenerative joint disease with narrowing of the medial joint compartment and patellofemoral degenerative signs. Procedure Note Maxwell Rojo MD - 12/25/2015Formatt ing of this note might be different from the original. Findings: Degenerative joint disease wit h narrowing of the medial joint compartment and patellofemoral degenerative signs. Davey Kulkarni MD RAD GD documented in this encounter Visit Diagnoses Diagnosis Chronic pain of right knee documented in this encounter
--- OUTSIDE RECORDS SUMMARY | 2022-01-21 22:45 | XMS_ITS | Encounter Summary ---
:1955 Author Organization [employer] Address [address] [place] [address] Care Team Providers Name Role Phone Loc Barrios MD Primary Care Provider Reason for Visit Reason Comments Spine Cervical Encounter Details Date Type Department Care Team Description 12/26/2018 Office Visit [facility] PT and Ed Shiv Remy, Cervical radiculopathy (Primary Dx); Center, Physical PT Neck pain on left side Therapy [address] [place] [address] [phone] Social History Tobacco Use Types Packs/Day Years Used Date Smoking Tobacco: Never Sex Assigned at Date Recorded Not on file documented as of this encounter Progress Notes Shiv Remy, PT - 12/26/2018 10:00 AM CDT [facility] [place] [facility] Daily Note Visit Number: 4 Insurance: [facility] Initial Certification Period:?11/27/2018 - 02/25/19 Referring Provider:??Beau Ogden MD Diagnosis:?Left Cervical Radic Orders:?Evaluate & treat Precautions/Contraindications:?None Date of Onset:?Mid November 2018 Standardized Functional Score: ??Neck Disability Index:?16/50 =??32%??11/27/2018? HISTORY:??Patient presents to [facility] Acute Injury Clinic Physical Therapy??with complaint of left shoulder and left??sided neck pain. Pt??reports pain starting about 2 weeks ago. Unsure of what caused the symptoms to start. Has been doing home projects (1000 foot addition and new deck).?? Method of Injury:?Insidious?? 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 IMAGING STUDIES:??MRI ordered SUBJECTIVE: Tingling in fingers is present but mild. He did some overhead work and noted the tingling was more present in elbow to his hand. Shoulder pain present with laying down and only when he moves in certainpositions. Neck pain is minimal. OBJECTIVE: (-) neural tension test today for median, ulnar, radial TREATMENT TODAY: Manual therapy, 1 or more regions (CPT 49513) x 10 minutes: - Lateral [place] to low c-spine - Distraction mobiliztions Therapeutic Exercise (CPT 03867) x 12 minutes: - Seated Lat Pull Down 10# --> 17# - Wall Slides 10# 2x15 Timed Treatment Minutes: 22 minutes Total Treatment Time: 22 minutes Charges: 1 MT, 1TE ASSESSMENT: Doing well - occasional tingling in fingers and occasional shoulder pain but minimal compared to previous visits. PLAN: Continue with strengthening EXPECTED FUNCTIONAL OUTCOMES/GOALS: HEP/Independent Management:?Demonstrate independence with HEP and self- management following each treatment session ADL's:?Resume previous sleep pattern without awakening due to symptoms in??4??weeks. Perform home management tasks with ease in??4??weeks. Work:?Resume previous level of working at the computer in??6??weeks. Therapist: Stewart Remy PT, DPT, SCS ([place] License #[id number]) 12/26/2018 documented in this encounter Plan of Treatment Not on filedocumented as of this encounter Visit Diagnoses Diagnosis Cervical radiculopathy - Primary Brachial neuritis or radiculitis nos Neck pain on left side Cervicalgia documented in this encounter Care Teams Back Grinder Relationship Specialty Start Date End Date Loc Barrios MD PCP - General Family Practice 12/06/18 [address] [place] [address] documented as of this encounter
--- OUTSIDE RECORDS SUMMARY | 2022-01-21 22:45 | XMS_ITS | Clinical Summary ---
:1955 Author Organization [facility] ian Affiliates [place] [address] Care Team Providers Name Role Phone Loc Barrios MD Primary Care Provider Mini Silva Unavailable Iwona Sanchez RN Unavailable Bharat Rivera MD Unavailable Allergies Active Allergy Reactions Severity Noted Date Comments Medium Chain Triglycerides Anaphylaxis High 05/06/[address] from coconut oil Penicillins Edema Low 09/23/2014 Testicles becam e very swollen when he was a child Other reaction( s): enlarged testic les as child Medications Medication Sig Dispensed Refills Start Date End Date Status blood-glucose Check sugar 3-4 1 Device 0 03/10/2015 Active meterIndications: times daily due to Uncontrolled type II high A1C diabetes mellitus CPAPIndications: CPAP machine for 1 unit 11 04/19/2018 Active Obstructive sleep home use at apnea on CPAP pressure: 5-15 cm/H2O , Heated humidifier x 1, Humidifier chamber x 1, EPINEPHrine (EPIPEN) Inject 0.3 mg 2 pen 2 05/12/2020 Active 0.3 mg/0.3 mL intramuscular one injection time if needed for Allergic Reaction. blood sugar Dispense item 300 Strip 3 05/26/2020 Act cherise diagnostic (ONETOUCH covered by pt ins. VERIO TEST STRIPS) E11.9 NIDDM type stripIndications: II - Test 3 Controlled type 2 times/day, Reason: diabetes mellitus High A1C without complication, without long-term current use of insulin (HC) metFORMIN Take 1 Tablet 180 tablet. 3 04/12/2021 Act cherise (GLUCOPHAGE) 1,000 mg (1,000 mg) by tabletIndications: mouth 2 times Type 2 diabetes daily with meals. mellitus with microalbuminuria, without long-term current use of insulin (HC) empagliflozin Take 10 mg by 90 tablet. 3 04/12/2021 Active (JARDIANCE) 10 mg mouth once daily. tabletIndications: Type 2 diabetes mellitus with microalbuminuria, without long-term current use of insulin (HC) continuous glucose As directed. 1 Each 0 04/12/2021 Active monitor READER (FamilonetStyle Wong 2 [place])Indications: Type 2 diabetes mellitus with microalbuminuria, without long-term current use of insulin (HC) continuous glucose As directed. 2 Each 12 04/12/2021 Active monitor SENSOR KIT Change sensor (FreeStyle Wong 2 every 14 days Sensor)Indications: Type 2 diabetes mellitus with microalbuminuria, without long-term current use of insulin (HC) dulaglutide Inject 0.75 mg 6 mL 3 07/14/2021 Ac tive (Trulicity) 0.75 subcutaneous once mg/0.5 mL weekly. subcutaneous penIndications: Type 2 diabetes mellitus with microalbuminuria, without long-term current use of insulin (HC) acetaminophen Take 2 Tablets 0 07/23/2021 Active (TYLENOL EXTRA (1,000 mg) by [facility]) 500 mg tablet mouth every 6 hours if needed for Pain. Max acetaminophen dose: 4000mg in 24 hrs. traZODone (DESYREL) Take 0.5 Tablets 30 Tablet 2 08/05/2021 Active 50 mg (25 mg) by mouth tabletIndications: at bedtime if Insomnia, unspecified needed for Sleep. type rosuvastatin Take 2 Tablets (20 90 tablet. 3 08/17/2021 Active (CRESTOR) 10 mg mg) by mouth at tablet bedtime. Taking 1 tab EVERY OTHER DAY ferrous sulfate, 65 Take 1 Tablet (325 100 Tablet 1 09/09/2021 Active mg elemental, mg) by mouth 2 tabletIndications: times daily with Anemia due to acute meals. blood loss metoprolol succinate Take 1 Tablet (25 90 Tablet 3 09/14/2021 Active (TOPROL XL) 25 mg mg) by mouth once Sustained-Release daily. tabletIndications: Atrial fibrillation with RVR (HC) apixaban (Eliquis) 5 Take 1 Tablet (5 180 Tablet 3 09/15/2021 Active mg tabletIndications: mg) by mouth in Atrial fibrillation the morning and 1 with RVR (HC), Tablet (5 mg) in Anticoagulation the evening. monitoring, INR range 2-3 Active Problems Problem Noted Date Colon polyp 12/23/2021 Overview: Colonoscopy 12/2021 5-TA, repeat in 3 yea rs, PEG 8L Anticoagulation monitoring, DOAC 08/17/2021 JACOBO (acute kidney injury) 07/21/2021 Large Pericardial Effusion s/p Pericardectomy (07/20/19) 06/28/2021 Atrial fibrillation with RVR 04/17/2021 Chronic idiopathic urticaria 05/05/2020 Angioedema 05/05/2020 KEV 05/17/2005 AHI-28 04/19/2018 Type 2 diabetes mellitus with microalbuminuria, withou t long-term current 07/11/2016 use of insulin Sensorineural hearing loss, bilateral 09/16/2014 Hyperlipidemia Resolved Problems Problem Noted Date Resolved Date Anticoagulation monitoring, INR range 2-3 07/23/2021 08/17/2021 Pneumonia 04/30/2021 09/13/2021 Controlled diabetes mellitus type II without complication 07/11/2016 Obstructive sleep apnea on CPAP 05/31/19 19 Sensorineural hearing loss of both ears 09/23/2014 Encounters Date Type Specialty Care Team Description 01/20/2022 Telephone Loc Barrios Referral (jennifer Zaldivar MD surgery) 01/19/2022 Orders Only Scanner <No scans attac hed> 12/22/2021 Procedure Only Mauricio Quinones Procedure (c olonoscopy) MD Miguelangel 12/22/2021 Travel 12/09/2021 Telephone Mauricio Quinones Appointment MD Miguelangel 11/16/2021 DOAC - Anticoagulation 1, [place] [facility] An[facility]agulation ([facility]AC - Clinic 3 month) from Last 3 Months Immunizations Name Administration Dates Next Due COVID-19 vaccine (TripIt 07/18/2020, 06/27/2020 30mcg/0.3mL) PFSRIKANTH Influenza, IIV4 03/13/2021, 02/03/2020, 03/14/2019, 03/22/2018, 03/22/2017, 03/24/2016, 03/09/2015 Pneumococcal conj 13-Valent (Prevnar 04/12/2021 13) Td (Age >=7 Years) 02/03/2020 Tdap 10/01/2009 Zoster (Shingrix-RZV, recombinant) 04/12/2021, 02/03/2020 Family History Medical History Relation Name Comments Diabetes Brother Heart Disease Father Diabetes Mother Heart Disease Mother Cancer Sister Unknown primary Relation Name Status Comments Brother Father Mother Sister Social History Tobacco Use Types Packs/Day Years Used Date Never Smoker Smokeless Tobacco: Former User Tobacco Cessation: Counseling Given: Yes Comments: no second hand smoke exposure Alcohol Use Standard Drinks/Week Comments Yes 0 (1 standard drink = 0.6 oz pure alcoho l) ocassionally Alcohol Habits Answer Date Recorded How often do you have a drink containing alcohol? 2-4 times a month 02/03/2020 How many drinks containing alcohol do you have on a 1 or 2 02/03/2020 typical day when you are drinking? How often do you have six or more drinks on one Never 02/03/2020 occasion? Comment: ocassionally 10/06/2021 Sex Assigned at Date Recorded Male 01/30/2020 10:03 PM CDT COVID-19 Exposure Response Date Recorded In the last 10 days, have you been in contact with No / Unsu re 12/22/2021 10:37 AM CDT someone who was confirmed or suspected to have Coronavirus/COVID-19? Obstetrics History Last Filed Vital Signs Vital Sign Reading Time Taken Comments Blood Pressure 125/70 09/15/2021 7:43 AM CDT Pulse 64 09/15/2021 7:43 AM CDT Temperature 36.7 ??C (98 ??F) 09/14/2021 2:05 PM CDT Respiratory Rate 16 09/14/2021 2:05 PM CDT Oxygen Saturation 96% 09/15/2021 7:43 AM CDT Inhaled Oxygen Concentration - - Weight 130.2 kg (287 lb) 09/15/2021 7:43 AM CDT Height 190.5 cm (6' 3) 09/15/2021 7:43 AM CDT Body Mass Index 35.87 09/15/2021 7:43 AM CDT Plan of Treatment Upcoming Encounters Date Type Specialty Care Team Description 01/24/2022 Office Visit Loc Barrios MD [address] [place], [place] [address] (Wo rk) 03/08/2022 Office Visit Kelly Houston MD [address] [place], [place] [address] (Wo rk) 03/08/2022 Office Visit Clau Sarah NP [address] [place], [place] [address] (Wo rk) Health Maintenance Due Date Last Done Comments COVID-19 vaccine series (4 - 05/08/2021 03/13/2021, 021, Booster for Pfizer series) 06/27/2020 Influenza for age 50-64 12/02/2021 03/13/2021, 02/03/2020, 03/14/2019, Additional history exists Pneumococcal series for age 19-64 04/12/2022 04/12/2021 (2 - PPSV23 if available, else PCV20) Depression screening for age 12+ 04/14/2022 04/14/2021, 01/2022, 04/12/2021, Additional history exists BMI (ht and wt on same day) for 09/15/2022 09/15/2021, 09/01, age 18+ 08/05/2021, Additional history exists Colonoscopy through age 75 12/22/2024 12/22/2021, 2, 10/06/2021, Additional history exists Lipids for age 45-75 04/12/2026 04/12/2021, 06/22/2020, 02/03/2020, Additional history exists Tetanus booster 02/02/2030 02/03/2020, 10/01/2009 Tdap Completed 10/01/2009 Hepatitis C screening for age Completed 03/24/2016 18-79 Zoster (shingles) series for age Completed 04/12/2021, 05/2019 50+ Medical Devices Implanted Type Area Cashier Or Checker Stock Clerk Device Shelf Model / Identifier Expiration Date Ser ial / Lot Occluder Bailee 45mm Atriclip Flex V Exclusion Sys - [id number] N/A: [employer] 03/03/2024 [id number] / Implanted: Qty: 1 on 07/19/2021 by Edin Pearson MD at [facility] / [id number] Description: Implanted on Left Atrial Ap pendage Procedures Procedure Name Priority Date/Time Associated Diagnosis Comme nts SCAN-RADIOLOGY 01/19/2022 12:00 Results f or this REPORT AM CDT procedure are i n the results section. PATH TISSUE EXAM Routine 12/22/2021 12:31 Polyp of colon, Resu lts for this PM CDT unspecified part of procedur e are in colon, unspecified the resul ts type section. COLONOSCOPY 12/22/2021 12:18 Results for this PM CDT procedure are i n the results section. from Last 3 Months Results SCAN-RADIOLOGY REPORT (01/19/2022 12:00 AM CDT) Narrative This result has an attachment that is no t available. Scanner OTHER PATH TISSUE EXAM (12/22/2021 12:31 PM CDT) Component Value Ref Test Analysis Performed At [facility] gist Range Method Time Signature Case Report Pathology Report ?Case: [id number] ? 12/23/2021 BOBBI Authorizing Provider: ??Mauricio Johnson MD ?? Collected: ? 12/22/2021 1231 ? 8:16 AM CDT HEALTH Ordering Location: ? All [facility] ?? Received: ?12/22/2021 1408 ? LABOR ATORY-C ? Clinic ? ENTRENDER Pathologist: ? Mini Burrell MD ? LABORATORY Specimens: ?? A) - Sigmoid P olyp ? B) - López sverse Colon Polyp ? Final A) COLON, SIGMOID, POLYPECTOMIES: 2021 [facility] Electronically Diagnosis 1. Tubular adenomas (2) and hyperplastic polyp (1) 8:16 AM CDT HEALTH signed by Indra, 2. Negative for high grade dysplasia LABORATORY-C Mini Tanner, 3. Per the colonoscopy report: ROBIN DIAZ on 12/23/2021 ?? a. Polyp sizes: 3 mm - 4 mm LABORATORY at 8:16 AM ?? b. Resection: Complete ?? c. Retrieval: Complete B) COLON, TRANSVERSE, POLYPECTOMIES: 1. Tubular adenomas (3) 2. Negative for high grade dysplasia 3. Per the colonoscopy report: ?? a. Polyp sizes: 3 mm - 6 mm ?? b. Resection: Complete ?? c. Retrieval: Complete Clinical Colonoscopy. 12/23/2021 [facility] Information Indications: 8:16 AM CDT HEALTH Excision of LABORATORY-C colonic polyp. ROBIN Last LABORATORY colonoscopy October 2021. Findings: Three 3-4 mm polyps in the sigmoid, resected and retrieved. Three 3-6 mm polyps in the transverse, resected and retrieved. Gross A) Received in formalin are 2 rodriguez mucosal fragments ranging from 3 mm to 6 mm in greatest dimension. The largest polyp is inked and sectioned at the apparent base. The specimen is entirely submitted in 0 12/23/2021 [facility] Description two cassettes. It is labeled with the patient's name and designated sigmoid polyp. 8:16 AM [facility] LABORATORY-C B) Received in formalin are 2 rodriguez-pink rubbery polyps ranging from 6 to 7 mm. Apparent base of each polyp is inked ??a different color, sectioned and entirely submitted in 1 cassette. It is labeled with the patient's name and designated B. ENTRAL LABORATORY Gamal Prince Latanyaanalisabritt 12/22/2021 8:54 PM Microscopic The final 12/23/2021 [facility] Description diagnosis is 8:16 AM [facility] based on LABORATORY-C microscopic ENTRAL examination of LABORATORY appropriate sections of all specimens. Additional 12/23/2021 [facility] Information Interpreted at [facility], Central Laboratory - [address], [place] [address] 8:16 AM [facility] LABORATORY-C ENTRAL LABORATORY Specimen Anatomical Collection Method Collection Time Receive d Time (Source) Location / / Volume Laterality Other (Sigmoid Non-Blood / 12/22/2021 12:31 2 2:08 Polyp) Unknown PM CDT PM CDT Specimen Non-Blood / 12/22/2021 12:48 12/22/2021 2:08 (specimen) Unknown PM CDT PM CDT (Transverse Colon Polyp) Mauricio Quinones MD PATHOLOGY/CYTOLOGY Performing Organization Address City/State/ZIP Code Phon e Number [facility] [address] [place] [address] LABORATORY-CENTRAL 2000 LABORATORY COLONOSCOPY (12/22/2021 12:18 PM CDT) Specimen (Source) Anatomical Collection Method Collection Time Re ceived Time Location / / Volume Laterality 12/22/2021 12:18 PM CDT Narrative This result has an attachment that is no t available. Transcriptions Mauricio Quinones MD - 12/22/2021 1: 16 PM CDT Patient Name: Brandon Santos Procedure Merritt e: 12/22/2021 Gender: Male Date of : 1955 Admit Type: Outpatient Procedure: Colonoscopy Proceduralist: Mauricio Quinones MD , Aurelia mason (Nurse), Helen Alvarez (Nurse) Indications/Pre-Op Diagnosis: Excision o f colonic polyp, Last colonoscopy: October 2021 Medications: Fentanyl 100 micrograms IV, Midazolam 2 mg IV, The level of sedation administered was moderate Procedure Description: The patient had risks, benefits and alt ernatives explained to and gave informed consent. The patient had a sta ble cardiopulmonary status and judged an adequate candidate for consci ous sedation. The Colonoscope was passed through the anus and advanced to the cecum, identified by appendiceal orifice and i leocecal valve. The colonoscopy was performed without difficulty. The p atient tolerated the procedure well. The quality of the bowel preparat ion was good. The ileocecal valve, appendiceal orifice, and rectum were photographed. Complications: No immediate complication s. Estimated Blood Loss & Specimen: Estimated blood loss: none. Specimen co llected - Yes and sent to Laboratory Findings: The perianal and digital rectal examina tions were normal. Three sessile polyps were found in the sigmoid colon. The polyps were 3 to 4 mm in size. These polyps were beth breanna with a cold snare. Resection and retrieval were complete. Three sessile polyps were found in the transverse colon. The polyps were 3 to 6 mm in size. These polyps were re moved with a cold and hot snare. Resection and retrieval were complete. The colon (entire examined portion) was significantly redundant. The exam was otherwise without abnormal ity. Impressions/Post-Op Diagnosis: - Three 3 to 4 mm polyps in the sigmoid colon, removed with a cold snare. Resected and retrieved. - Three 3 to 6 mm polyps in the transve rse colon, removed with a hot snare. Resected and retrieved. - Redundant colon. - The examination was otherwise normal. Recommendation: - Patient has a contact number [facility] for emergencies. The signs and symptoms of potential delayed complicat ions were discussed with the patient. Return to normal activities to [employer]. Written discharge instructions were provided to the patie nt. - Resume previous diet. - Continue present medications. - Await pathology results. - Repeat colonoscopy is recommended. e colonoscopy date will be determined after pathology results from today's exam become available for review. - For future colonoscopy the patient wi ll require an extended preparation, peg 8L, colowrap. If there are any questions, please contact the wildlife policy professional. Moderate Sedation: A time out was performed before the pro cedure. Moderate (conscious) sedation was administered by the endos opy nurse and supervised by the endoscopist. The following parameters w ere monitored: oxygen saturation, heart rate, blood pressure, EKG, CO2, r espiratory rate, adequacy of pulmonary ventilation and reponse to ca re. Please refer to the patient's medical r ecord flowsheets and nursing notes for moderate sedation details. Total physician intraservice time was 3 8 minutes. Mauricio Quinones MD 12/22/2021 1:16:09 PM This report has been signed electronical ly. Note Initiated On: 12/22/2021 12:18 PM Procedure Code(s): --- Professional --- 23154, Colonoscopy, flexible; with beth stefan of tumor(s), polyp(s), or other lesion(s) by snare technique Diagnosis Code(s): --- Professional --- D12.5, Benign neoplasm of sigmoid colon D12.3, Benign neoplasm of transverse co stacey (hepatic flexure or splenic flexure) K63.5, Polyp of colon Q43.8, Other specified congenital malfo rmations of intestine CPT copyright 2020 [employer]. All rights reserved. The codes documented in this report are preliminary and upon silvering applicator review may be revised to meet current compliance re quirements. Scope In: 12:27:53 PM Scope Withdrawal Time 0 hours 24 minutes 25 seconds Scope Out: 1:04:45 PM Mauricio Quinones MD PROCEDURE ORD from Last 3 Months Insurance Payer Benefit Plan / Subscriber ID Effective Dates Phone Addre ss Type Group [facility] [id number] 2018-Present [address] [address] [place] [address] Advance Directives Latest Code Status on File Code Status Date Activated Date Inactivated Comments Full Code 07/19/2021 8:57 AM 07/23/2021 7:50 PM Code Status Discussion: Per Existing Order Full Code 04/30/2021 5:50 AM 04/30/2021 7:34 PM Code Status Discussion: Unable to Assess Preferences, Provid er to review later Full Code 04/17/2021 3:12 PM 04/19/2021 6:21 PM Code Status Discussion: Reviewed Preferences Care Teams Retail Department Reset Relationship Specialty Start Date End Date Loc Barrios PCP - General Family Practice 03/21/[address] [place] [address] Mini Silva Provider Audiology 10/15/18 L, [address] [facility] [place] [address] Iwona Sanchez, Profile Stitching Machine Operator 07/23/20 [address] [place] [address] Charaf, Edriss Consulting Physician Cardiology - 04/21/21 MD Sav Electrophysiology [address] [facility] [address] [place] [address]
== END 2022-01-21 23:01 | disposition home or self-care (01) ==
PROVIDERS: Emergency Provider Internal Medicine; PCP Surgery
DX: J20.9 Acute bronchitis, unspecified (principal)
CPT/HCPCS: 71046; 99283